=== PATIENT | female | born 1990 | race Asian ===

== ENCOUNTER 2021-06-09 10:30 | Emergency (ER) | payer OTHER ==
[~2021-06-09] VITALS: Ht 160 cm; Wt 72.4 kg
[2021-06-09 11:15] LABS: HEMATOCRIT 41.4 % (36.0-47.0); HEMOGLOBIN 13.4 g/dl (12.0-15.5); MEAN CORPUSCULAR HEMOGLOBIN 29.4 pg (27.0-33.0); MEAN CORPUSCULAR HGB CONC 32.4 g/dl (32.0-36.5); MEAN CORPUSCULAR VOLUME 90.8 fl (80.0-96.0); PLATELET COUNT, AUTOMATED 317 10^3/uL (150-450); RED BLOOD COUNT 4.56 10^6/uL (4.00-5.40); WHITE BLOOD COUNT 5.2 10^3/uL (4.0-10.0)
[2021-06-09 11:41] LABS: HCG, SERUM QUALITATIVE NEGATIVE (NEGATIVE)
[2021-06-09 11:54] LABS: ACETAMINOPHEN LEVEL < 2.0 UG/ML (10.0-30.0); ALBUMIN 3.4 GM/DL (3.2-5.2); ALT/SGPT 24 U/L (12-78); BILIRUBIN,DIRECT 0.1 MG/DL (0.0-0.2); BILIRUBIN,TOTAL 0.3 MG/DL (0.2-1.0); BLOOD UREA NITROGEN 10 MG/DL (7-18); CALCIUM LEVEL 8.5 MG/DL (8.5-10.1); CARBON DIOXIDE LEVEL 28 MEQ/L (21-32); CHLORIDE LEVEL 109 MEQ/L (98-107); CREATININE FOR GFR 0.73 MG/DL (0.55-1.30); ETHYL ALCOHOL (ETHANOL) < 0.003 % (0.000-0.010); GLOMERULAR FILTRATION RATE > 60.0 (>60); GLUCOSE, FASTING 88 MG/DL (70-100); POTASSIUM SERUM 3.9 MEQ/L (3.5-5.1); SALICYLATE LEVEL < 1.7 MG/DL (5.0-30.0); SODIUM LEVEL 141 MEQ/L (136-145); TOTAL PROTEIN 6.5 GM/DL (6.4-8.2)
[2021-06-09 12:02] LABS: AMPHETAMINES LEVEL URINE NEGATIVE (NEGATIVE); BARBITURATES URINE NEGATIVE (NEGATIVE); BENZODIAZEPINES URINE NEGATIVE (NEGATIVE); CANNABINOIDS URINE NEGATIVE (NEGATIVE); COCAINE METABOLITE URINE NEGATIVE (NEGATIVE); METHADONE URINE NEGATIVE (NEGATIVE); OPIATES URINE NEGATIVE (NEGATIVE); PHENCYCLIDINE URINE NEGATIVE (NEGATIVE)
[2021-06-09 14:17] VITALS: BP 132/72
== END 2021-06-09 14:19 | disposition home or self-care (01) ==
LOC: M ED 10:30
DX: F32.9 Major depressive disorder, single episode, unspecified (principal); F90.9 Attention-deficit hyperactivity disorder, unspecified type

== ENCOUNTER 2021-06-17 12:02 | Emergency (ER) | payer OTHER ==
[~2021-06-17] VITALS: Ht 165.1 cm; Wt 61.4 kg
[2021-06-17 12:03] VITALS: BP 110/72
[2021-06-17] MEDS ORDERED: LEXA1TAB2 PO (12:17)
[2021-06-17] MEDS ORDERED: HYDR50TA70 PO (14:48)
[2021-06-17] MEDS ORDERED: PEPC1TAB5 PO (14:48)
== END 2021-06-17 15:25 | disposition home or self-care (01) ==
LOC: M ED 12:02
DX: F41.9 Anxiety disorder, unspecified (principal); K21.9 Gastro-esophageal reflux disease without esophagitis; J03.90 Acute tonsillitis, unspecified; F90.9 Attention-deficit hyperactivity disorder, unspecified type